=== PATIENT | female | born 1985 | race Caucasian/White ===

== ENCOUNTER 2019-01-30 11:09 | Outpatient (CLI) | payer MEDICAID ==
[~2019-01-30] VITALS: Ht 144.8 cm; Wt 87.3 kg
[2019-01-30 11:31] VITALS: BP 104/59; PULSE 89; RESP 18; Ht 144.8 cm; Wt 87.3 kg
--- NOTE | 2019-01-30 14:11 | PN ---
Triage Information Date/Time Reason for visit: Vag spotting / bleeding Weeks of Gestation 35 weeks and 5 days /Para -0-0-1 Diabetes: none Diabetes management: diet controlled Hypertention: none Objective Vital Signs Date Temp Pulse Resp B/P (MAP) Pulse Ox O2 O2 Flow FiO2 Time Delivery Rate 01/30/19 99.2 89 18 104/59 11:31 (74) Heart Rate: 140's Contractions: None Disposition: Discharge Assessment/Plan 33 years old -0-0-1 with single intrauterine at 35 weeks and 5 days with MAREK of 03/01/2019 complaining of one episode vaginal spotting. She states good movement. She denies nausea, vomiting, shortness of breath, chest pain, headache, visual changes or LOF. -FHR: No sign of metabolic acidosis- Category I -Contractions: None -Speculum exam performed, there was no active bleeding. SVE: Closed/thick/high/ceph/intact -Ultrasound performed: Normal HOLLIE, BPP 8 out of 8 -Symptoms and sign of labor, preeclampsia, kick count discussed with patient, she voiced understanding. All of her questions answered. -Patient was discharged home in stable condition with the appropriate discharge instructions provided. I would like patient to have close follow-up with her primary physician or outpatient clinic in 1-2 days or return to triage for worsening symptoms or any other urgent concerns. ROSALIND OHARA Jan 30, 2019 14:11
--- NOTE | 2019-01-30 15:03 | TRIAGE ---
OB Triage Datetime Report Generated by CPN: 01/30/2019 15:02 Datetime: 01/30/2019 14:46 Labor Evaluation Frequency: x1 Monitor Mode: External Duration (sec)2399: 70 Quality: Mild Pattern: Normal: <= 5 Contractions in 10 Minutes Resting Tone [place]: Relaxed Heart Rate FHR Baseline Rate: 135 Monitor Mode: External US Variability: Moderate 6-25 bpm Accelerations: 15X15 Decelerations: None Category: Category I Pain Presence: None/Denies Pain Type: N/A Datetime: 01/30/2019 14:00 Labor Evaluation Frequency: 2-8 Monitor Mode: External Duration (sec)2399: 40-80 Quality: Mild Pattern: Normal: <= 5 Contractions in 10 Minutes Resting Tone [place]: Relaxed Heart Rate FHR Baseline Rate: 140 Variability: Moderate 6-25 bpm Accelerations: 15X15 Decelerations: None Category: Category I Datetime: 01/30/2019 13:01 Labor Evaluation Frequency: x5 Monitor Mode: External Duration (sec)2399: 50-80 Quality: Mild Pattern: Normal: <= 5 Contractions in 10 Minutes Resting Tone [place]: Relaxed Heart Rate FHR Baseline Rate: 145 Monitor Mode: External US Variability: Moderate 6-25 bpm Accelerations: 15X15 Decelerations: None Category: Category I Pain Presence: None/Denies Pain Type: N/A Datetime: 01/30/2019 12:42 Vaginal Exam Dilatation (cms): 0.0 Exam By: wliu Datetime: 01/30/2019 11:57 Duration (sec)2399: 20-30 Pattern: Normal: <= 5 Contractions in 10 Minutes Resting Tone [place]: Relaxed Contraction Comments: irritability Heart Rate FHR Baseline Rate: 145 Monitor Mode: External US Variability: Moderate 6-25 bpm Accelerations: 15X15 Decelerations: None Category: Category I Pain Assessment Pain Scale: 0 Pain Presence: Intermittent Pain Type: Pressure Pain Location: Abdomen Pain Goal: 3 Datetime: 01/30/2019 11:21 Maternal Assessment Level of Consciousness: Keenly Alert, Responsive DTR's/Clonus: DTRs 2+; No Clonus Headache: Denies Blurred Vision: No Respiratory Effort: Unlabored; Regular Rhythm; Equal Expansion Breath Sounds, Left: Clear and Equal Breath Sounds, Right: Clear and Equal Nausea/Vomiting: Denies RUQ Epigastric Pain: Denies Lower Extremities Edema: Bilateral Lower Extremities Degree: Pitting Upper Extremities Edema: None Facial Edema: None Fall Risk Assessment History of Falling: (0) No Secondary Diagnosis: (0) No Ambulatory Aid: (0) Bedrest/Nurse Assist IV Therapy: (0) No Gait: (0) Normal/Bedrest/Immobile Mental Status: (0) Oriented to Own Ability Fall Score: 0 Fall Risk Score Definition: No Risk: No action required Datetime: 01/30/2019 11:20 Time of Arrival: 01/30/2019 11:04 EGA: 35.5 Arrived By: Ambulatory Arrived From: Office Chief Complaint: to ob triage from md office with prescription for eval vag. spotting Movement: Present Rupture of Membranes: Denies Vaginal Discharge: Denies Recent Sexual Intercouse: Denies Abdominal Trauma: Not Applicable Patient Complaints: Other Time Provider Notified: 01/30/2019 12:48 Provider Notified: Initial Plan: r/o ptl
== END 2019-01-30 15:00 | disposition home or self-care (01) ==
LOC: OBT 11:09 → L-D 11:10 → OBT 15:00
PROVIDERS: ATTEND Obstetrics & Gynecology
DX: O26.853 Spotting complicating pregnancy, third trimester (principal); O24.419 Gestational diabetes mellitus in pregnancy, unspecified control; Z3A.35 35 weeks gestation of pregnancy
CPT/HCPCS: 76818; Z7500; G0463

== ENCOUNTER 2019-02-06 15:14 | Inpatient (IN) | payer MEDICAID ==
[~2019-02-06] VITALS: Ht 152.4 cm; Wt 88.0 kg
--- NOTE | 2019-02-06 18:27 | TRIAGE ---
OB Triage Datetime Report Generated by CPN: 02/06/2019 18:27 Datetime: 02/06/2019 17:30 Stage of : OB Triage Maternal Assessment Level of Consciousness: Keenly Alert, Responsive Labor Evaluation Frequency: 8UC/HR Monitor Mode: External Duration (sec)2399: 30-70 Quality: Mild Resting Tone [place]: Relaxed Heart Rate FHR Baseline Rate: 135 Monitor Mode: External US Variability: Moderate 6-25 bpm Accelerations: 15X15 Decelerations: None Category: Category I Pain Assessment Pain Scale: 0 Pain Goal: 3 Vaginal Exam Membrane Status: Intact Datetime: 02/06/2019 16:30 Stage of : OB Triage Maternal Assessment Level of Consciousness: Keenly Alert, Responsive Labor Evaluation Frequency: OCCASIONAL Monitor Mode: External Duration (sec)2399: 30-50 Quality: Mild Resting Tone [place]: Relaxed Heart Rate FHR Baseline Rate: 135 Monitor Mode: External US Variability: Moderate 6-25 bpm Accelerations: 15X15 Decelerations: None Category: Category I Pain Assessment Pain Scale: 0 Pain Goal: 3 Vaginal Exam Membrane Status: Intact Datetime: 02/06/2019 15:35 Assessment Type: Triage Maternal Assessment Level of Consciousness: Keenly Alert, Responsive DTR's/Clonus: DTRs 2+; No Clonus Headache: Denies Blurred Vision: No Respiratory Effort: Unlabored; Regular Rhythm; Equal Expansion Breath Sounds, Left: Clear and Equal Breath Sounds, Right: Clear and Equal Nausea/Vomiting: Denies RUQ Epigastric Pain: Denies Lower Extremities Edema: Bilateral Lower Extremities Degree: Pitting Upper Extremities Edema: None Degree: None Facial Edema: None Fall Risk Assessment History of Falling: (0) No Secondary Diagnosis: (0) No Ambulatory Aid: (0) Bedrest/Nurse Assist IV Therapy: (0) No Gait: (0) Normal/Bedrest/Immobile Mental Status: (0) Oriented to Own Ability Fall Score: 0 Fall Risk Score Definition: No Risk: No action required Datetime: 02/06/2019 15:33 Time of Arrival: 02/06/2019 15:07 EGA: 36.5 Arrived By: Ambulatory Arrived From: Home Chief Complaint: PT. SENT FROM CLINIC FOR EVAL OF SPOTTING X 8 DAYS Movement: Present Contractions: Denies/Absent Rupture of Membranes: Denies Vaginal Bleeding: Scant Vaginal Discharge: Denies Recent Sexual Intercouse: Denies Abdominal Trauma: Not Applicable Patient Complaints: None Time Provider Notified: 02/06/2019 15:43 Provider Notified: ESHAGHIAN Initial Plan: BPP/NST Datetime: 02/06/2019 15:29 Monitor Mode: External Monitor Mode: External US Datetime: 01/30/2019 11:21 Fall Score: 0 Fall Risk Score Definition: No Risk: No action required Datetime: 01/30/2019 11:20 EGA: 35.5
[2019-02-06 18:44] VITALS: BP 112/60; PULSE 74; RESP 18; Ht 152.4 cm; Wt 88.0 kg
--- NOTE | 2019-02-06 19:47 | PREOPHP ---
DATE OF ADMISSION: 02/06/2019 HISTORY OF PRESENT ILLNESS: Ms. Emily Hammond is a 33-year-old 2, para 1, EDC 03/01/2019, intrauterine at 36 weeks and 5 days gestational age, complaining of vaginal spotting for t he past 8 days. She denies any contractions or abdominal pain. She denies any nausea, vomiting, amira rtness of breath, or visual changes. Her care took place at [facility]. PAST MEDICAL HISTORY: None. MEDICATIONS: vitamins. PAST SURGICAL HISTORY: None. OBSTETRIC HISTORY: x1 vaginal delivery. GYNECOLOGIC HISTORY: 12, regular 3 to 4 days. She denies any sexually transmitted infection. Sexua lly active with 1 partner. SOCIAL HISTORY: Denies any smoking, drugs or alcohol. FAMILY HISTORY: None. REVIEW OF SYSTEMS: All within normal except history of present illness. PHYSICAL EXAMINATION: HEENT: Within normal. LUNGS: CTA bilateral. CARDIOVASCULAR: S1, S2, regular rhythm. ABDOMEN: Gravid, nontender. Negative CVA bilateral. EXTREMITIES: Negative calf tenderness. PELVIC: Vaginal exam short and closed. No active vaginal bleeding or spotting noted. Biophysical p rofile 8/8, placenta is anterior without evidence of abruptio or previa. ASSESSMENT: Admit patient for close monitoring. PLAN: Consider discharge home tomorrow if stable. Dictated By: ESTHER SANCHEZ/BRIJESH Conf#: [id number] DID#: [id number]
--- NOTE | 2019-02-07 16:42 | QN ---
Documentation Comment progress note patient seen and evaluated no complaints vs stable afebrile ab soft gravid nt extremity no edema no calf tenderness ve no active bleeding fhr cat 1 toco no ctx h/h stable a/ iup at 36 wks ga, no sign of abruption p/ discharge home tomorrow ESTHER WATSON MD Feb 07, 2019 16:42
--- NOTE | 2019-02-07 16:44 | PD.PPDC ---
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
--- NOTE | 2019-02-07 21:52 | DS ---
DATE OF ADMISSION: 02/06/2019 DATE OF DISCHARGE: 02/07/2019 PRIMARY DIAGNOSIS: Intrauterine at 36 weeks and 5 days gestational age. Vaginal spotting, undelivered. PROCEDURE: None. CONDITION ON DISCHARGE: Stable. ACTIVITY: None per vagina, no heavy lifting. DIET: Regular. MEDICATIONS ON DISCHARGE: Continue vitamins. DISCHARGE SUMMARY: Ms. Emily Hammond is a 33-year-old 2, para 1, intrauterine a t 36 weeks and 5 days gestational age, presented to triage yesterday complaining of vaginal spotting for 8 days. She was admitted for monitoring. She had no signs of abruption. Her hemoglobin and hem atocrit is stable. She will be discharged home today with strict kick count and was advised to return to the hospital if she has any bleeding or spotting. Dictated By: ESTHER SANCHEZ/RBIJESH Conf#: [id number] DID#: [id number] CC: ESTHER WATSON MD;*EndCC*
== END 2019-02-07 17:24 | disposition home or self-care (01) | DRG 833 ==
LOC: OBT 15:14 → L-D 15:15 → OBT 18:30
PROVIDERS: ADMIT Obstetrics & Gynecology; ATTEND Obstetrics & Gynecology
DX: O26.853 Spotting complicating pregnancy, third trimester (principal); Z3A.36 36 weeks gestation of pregnancy
CPT/HCPCS: 76818; 85014; 85018; 85025; G0463

== ENCOUNTER 2019-02-25 14:00 | Inpatient (IN) | payer MEDICAID ==
[~2019-02-25] VITALS: Ht 154.9 cm; Wt 88.1 kg
[2019-02-26 13:06] VITALS: Ht 154.9 cm; Wt 88.1 kg
[2019-02-26] MEDS ORDERED: IBUPROFEN 600 MG TAB PO PRN (13:30)
[2019-02-26] MEDS ORDERED: OXYTOCIN 30 UNITS/LR 500 ML IV SCH ×4 (13:30→16:30)
[2019-02-26] MEDS ORDERED: LIDOCAINE 1% (MPF) 30 ML INJ INJ PRN (13:30)
[2019-02-26] MEDS ORDERED: MISOPROSTOL 200 MCG TAB PR PRN (13:30)
[2019-02-26] MEDS ORDERED: METHYLERGONOVINE 0.2 MG INJ IM PRN (13:30)
[2019-02-26] MEDS ORDERED: CARBOPROST 250 MCG INJ IM PRN (13:30)
[2019-02-26] MEDS ORDERED: OXYTOCIN 30 UNITS/LR 500 ML IV PRN (13:30)
[2019-02-26] MEDS ORDERED: BUTORPHANOL 2 MG INJ IV PRN (13:30)
[2019-02-26] MEDS: LACTATED RINGER'S 1,000 ML IV SCH ×2 (14:06→21:05)
[2019-02-26] MEDS ORDERED: LACTATED RINGER'S 1,000 ML IV PRN (16:05)
[2019-02-26] MEDS: MISOPROSTOL 50 MCG CAPSULE PO SCH ×2 (16:16→21:05)
--- NOTE | 2019-02-26 22:20 | PREOPHP ---
DATE OF ADMISSION: 02/26/2019 HISTORY OF PRESENT ILLNESS: Ms. Emily Hammond, a 33-year-old 2, para 1, EDC 03/01/2019, i ntrauterine at 39+ weeks gestational age, admitted today for social induction. She denies any headache, nausea, vomiting, shortness of breath, visual change or epigastric pain. She is curren tly on Cytotec for cervical ripening. Her care took place at [facility]. PAST MEDICAL HISTORY: None. MEDICATIONS: vitamins. PAST SURGICAL HISTORY: None. OBSTETRICAL HISTORY: x1 vaginal delivery. GYNECOLOGIC HISTORY: 12, regular, 3 to 4 days. Denies any sexually transmitted infections. Sexuall y active with 1 partner. SOCIAL HISTORY: Denies any smoking, drugs or alcohol. FAMILY HISTORY: None. REVIEW OF SYSTEMS: All within normal except history of present illness. PHYSICAL EXAMINATION: HEENT: Within normal. LUNGS: CTA bilateral. CARDIOVASCULAR: S1, S2, regular rhythm. ABDOMEN: Gravid, nontender. Negative CVA bilateral. EXTREMITIES: Negative calf tenderness. PELVIC: Vaginal exam fingertip to 40% effaced, -3 station. heart tracing category 1. Romeo re gular contractions. ASSESSMENT: Intrauterine at 39 weeks gestational age, admitted for social induction, curre ntly on Cytotec for cervical ripening. PLAN: Continue current management, followed by Alyse. Dictated By: ESTHER SANCHEZ/BRIJESH Conf#: [id number] DID#: [id number]
[2019-02-27] MEDS: MISOPROSTOL 50 MCG CAPSULE PO SCH ×4 (01:04→14:04)
[2019-02-27] MEDS: LACTATED RINGER'S 1,000 ML IV SCH ×2 (05:23→13:27)
[2019-02-27] MEDS ORDERED: OXYTOCIN 30 UNITS/LR 500 ML IV SCH (18:48)
--- NOTE | 2019-02-27 18:48 | LDN ---
Date/Time of Note Date/Time of Note DATE: 02/27/19 TIME: 18:47 Delivery Summary Weeks of Gestation 39 Placenta Delivered: Spontaneously Meconium: none, Thick Episiotomy: No Anesthesia type: None Estimated blood loss: 150 Sponge & Needle done & correct: Yes All needle counts correct: Yes Any foreign bodies felt in the: No Infant Delivery Information Sex Sex: female Apgars 1 Minute: 8 5 Minute: 9 Suctioning Nose & mouth suctioned at brooke: No Delee suction performed: No Umbilical Cord Umbilical cord with: 3 Vessels Cord presentations: no nuchal cord Cord Blood was obtained: Yes ESTHER WATSON MD Feb 27, 2019 18:48
[2019-02-27] MEDS ORDERED: WITCH HAZEL/GLYCERIN PAD PR PRN (19:00)
[2019-02-27] MEDS ORDERED: NACL 0.9% 3 ML SYG IV SCH (19:00)
[2019-02-27] MEDS ORDERED: METHYLERGONOVINE 0.2 MG INJ IM PRN (19:00)
[2019-02-27] MEDS ORDERED: OXYTOCIN 30 UNITS/LR 500 ML IV PRN (19:00)
[2019-02-27] MEDS ORDERED: OXYCODONE/ASPIRIN (4.88/325) TAB PO PRN (19:00)
[2019-02-27] MEDS ORDERED: ACETAMINOPHEN 325 MG TAB PO PRN (19:00)
[2019-02-27] MEDS ORDERED: LANOLIN HPA 1 PKT TOP PRN (19:00)
[2019-02-27] MEDS ORDERED: BENZOCAINE 20% 56 ML SPRAY TOP PRN (19:00)
[2019-02-27] MEDS ORDERED: MISOPROSTOL 200 MCG TAB PR PRN (19:00)
[2019-02-27] MEDS ORDERED: CARBOPROST 250 MCG INJ IM PRN (19:00)
[2019-02-27 21:00] VITALS: BP 125/60; PULSE 59; RESP 19
[2019-02-27 22:30] VITALS: BP 117/59; PULSE 72; RESP 18
[2019-02-27 23:30] VITALS: BP 116/57; PULSE 74; RESP 18
[2019-02-28] VITALS: BP 96/58; PULSE 72; RESP 18
[2019-02-28] MEDS: IBUPROFEN 600 MG TAB PO SCH ×5 (01:11→23:47)
[2019-02-28] MEDS: SENNA/DOCUSATE NA (8.6MG/50MG) TAB PO SCH ×3 (01:11→21:32)
[2019-02-28 03:45] VITALS: BP 109/56; PULSE 60; RESP 18
[2019-02-28 08:00] VITALS: BP 107/67; PULSE 66; RESP 18
[2019-02-28] MEDS: MISOPROSTOL 50 MCG CAPSULE PO SCH (08:05)
[2019-02-28] MEDS: LACTATED RINGER'S 1,000 ML IV SCH (08:05)
[2019-02-28 17:19] VITALS: BP 104/57; PULSE 87; RESP 18
--- NOTE | 2019-02-28 18:33 | PD.PPDC ---
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
--- NOTE | 2019-02-28 18:34 | DS ---
Date/Time of Note Date/Time of Note DATE: 02/28/19 TIME: 18:34 Obstetrical Discharge Record Final Diagnosis Final Diagnosis: Term delivered Vaginal Delivery Obstetrical Delivery: Spontaneous Condition on Discharge Physical Assessment Last Vitals: stable afebrile Voiding: Yes Bowel Movement: Yes Breast: Soft, non-tender, Filling Fundus: Firm Abdomen and Incision: soft nt Calf Tenderness: No Patient Condition: Fair ESTHER WATSON MD Feb 28, 2019 18:34
[2019-02-28 21:35] VITALS: BP 115/60; PULSE 74; RESP 19
[2019-03-01 04:00] VITALS: BP 108/60; PULSE 82; RESP 18
[2019-03-01] MEDS: IBUPROFEN 600 MG TAB PO SCH ×2 (05:37→11:38)
[2019-03-01 08:00] VITALS: BP 100/55; PULSE 74; RESP 18
[2019-03-01] MEDS: SENNA/DOCUSATE NA (8.6MG/50MG) TAB PO SCH (09:07)
--- NOTE | 2019-03-02 14:23 | DELSUM ---
Delivery Summary A-C Datetime Report Generated by CPN: 03/02/2019 14:22 DELIVERY PERSONNEL Press Tender Smoke Signal: April Gonzaleza MATERNAL INFORMATION Delivery Anesthesia: None Medications in Delivery: oxytocin 30 mu in 500 ml of lr Delivery QBL (ml): 150 Placenta Cultured: No Maternal Complications: None LABOR SUMMARY EDC: 03/01/2019 00:00 No. Babies in Womb: 1 Attempted: No Labor Anesthesia: None LABOR INFORMATION Reason for Induction: Other Reason for Induction- Other: ELECTIVE Onset of Labor: 02/27/2019 16:00 Complete Dilatation: 02/27/2019 18:28 Cervical Ripening Agents: Cytotec @ [facility] [place] [facility] B Beta Strep: Negative Steroids Given: None Reason Steroids Not Administered: Not Applicable MEMBRANES Membranes Rupture Method: Artificial Rupture of Membranes: 02/27/2019 17:21 Length of Rupture (hr): 1.23 Amniotic Fluid Color: Heavy Meconium Amniotic Fluid Amount: Moderate STAGES OF LABOR Stage 1 hr: 2 Stage 1 min: 28 Stage 2 hr: 0 Stage 2 min: 7 Stage 3 hr: 0 Stage 3 min: 1 Total Time in Labor hr: 2 Total Time in Labor min: 36 VAGINAL DELIVERY Initial Vag Sponge Count: 10 Final Vag Sponge Count: 10 Initial Vag Sharps Count: 1 Final Vag Sharps Count: 1 Sponge Count Correct: Yes; Vaginal Sweep Performed Sharps Count Correct: Yes BABY A INFORMATION Infant Delivery Date/Time: 02/27/2019 18:35 Method of Delivery: Vaginal Born in Route : No : N/A Forceps: N/A Vacuum Extraction: N/A Shoulder Dystocia : No SHOULDER DYSTOCIA BABY A Infant Delivery Date/Time: 02/27/2019 18:35 PRESENTATION/POSITION BABY A Presentation: Cephalic Cephalic Presentation: Vertex Vertex Position: Left Occipital Anterior Breech Presentation: N/A PLACENTA INFORMATION BABY A Placenta Delivery Time : 02/27/2019 18:36 Placenta Method of Delivery: Spontaneous Placenta Status: Delivered SCORES BABY A Heart Rate 1 min: >100 bpm Resp Effort 1 min: Good Cry Reflex Irritability 1 min: Cough/Sneeze/Pulls Away Muscle Tone 1 min: Active Motion Color 1 min: Blue/Pale Resuscitation Effort 1 min: Tactile Stimulation SCORE 1 MIN: 8 Heart Rate 5 min: >100 bpm Resp Effort 5 min: Good Cry Reflex Irritability 5 min: Cough/Sneeze/Pulls Away Muscle Tone 5 min: Active Motion Color 5 min: Body [place], Extremit Blue SCORE 5 MIN: 9 INFANT INFORMATION BABY A Gestational Age at Delivery: 39.5 Gestational Status: Full Term- 39- 40.6 Weeks Outcome : Liveborn, with signs of life Infant Condition : Stable Sex: Female IDENTIFICATION/MEDS BABY A ID Band Number: [id number] ID Band Location: Right Leg; Left Leg Sensor Applied: Yes Sensor Number: [id number] Sensor Location : Cord Clamp Vitamin K Given : Not Given Erythromycin Given: Not Given WEIGHT/LENGTH BABY A Infant Birthweight (gm): 3230 Infant Weight (lb): 7 Weight (oz): 2 Length (in): 20.00 Length (cm): 50.80 CORD INFORMATION BABY A No. Cord Vessels: 3 Nuchal Cord : N/A Cord Blood Taken: Yes Infant Suction: Mouth; Nose ASSESSMENT BABY A Complications: Multiple Variable Decels Physical Findings at Delivery: Within Normal Limits Infant Respirations: Appears Normal Account Director/ALS Called : No Infant Care By: charu gonzalez Transferred To: Remains with Mother
== END 2019-03-01 14:22 | disposition home or self-care (01) | DRG 807 ==
LOC: L-D 02-26 08:19 → PP1 02-27 21:05
PROVIDERS: ADMIT Obstetrics & Gynecology; ATTEND Obstetrics & Gynecology
PROC: 10E0XZZ Delivery of Products of Conception, External Approach (ICD-10-PCS; principal; 2019-02-27)
DX: O80 Encounter for full-term uncomplicated delivery (principal); Z37.0 Single live birth; Z3A.39 39 weeks gestation of pregnancy
CPT/HCPCS: 76815; 85025; 85610; 85730; 86592; 86850; 86900; 86901; 87340; 99464; J0595; J2590; J7120